=== PATIENT | male | born 1975 | race Caucasian/White ===

== ENCOUNTER 2016-10-15 14:08 | Observation (INO) | payer OTHER ==
[~2016-10-15] VITALS: Ht 177.8 cm; Wt 127.5 kg
[2016-10-15 14:52] LABS: ABSOLUTE BASOPHIL COUNT 0.1 /CUMM (0.0-0.2); ABSOLUTE EOSINOPHIL COUNT 0.3 /CUMM (0.0-0.7); ABSOLUTE GRANULOCYTE CT 7.7 /CUMM (1.4-6.5); ABSOLUTE LYMPH COUNT 2.6 /CUMM (1.2-3.4); ABSOLUTE MONOCYTE COUNT 0.6 /CUMM (0.10-0.60); BASOPHIL % 0.7 % (0.0-2.0); EOSINOPHIL % 2.3 % (0-5); GRANULOCYTE % 68.6 % (42.2-75.2); HEMATOCRIT 45.5 % (42-52); MEAN CORPUSCULAR HGB 30.3 PG (27.0-31.0); MEAN CORPUSCULAR HGB CONC 33.5 G/DL (33.0-37.0); MEAN CORPUSCULAR VOLUME 90.6 FL (80.0-94.0); MEAN PLATELET VOLUME 9.1 FL (7.4-10.4); PLATELET COUNT 183 /CUMM (130-400); RBC DISTRIBUTION WIDTH 13.6 % (11.5-14.5); RED BLOOD CELL CT 5.03 /CUMM (4.70-6.10); WHITE BLOOD CELL COUNT 11.2 /CUMM (4.8-10.8)
--- NOTE | 2016-10-15 17:05 | ED CARDIAC/CP/PALPITATIONS ---
History of Present Illness General Chief Complaint: Chest Pain Stated Complaint: CHEST PAIN,SOB Source: patient Exam Limitations: no limitations Vital Signs & Intake/Output Vital Signs & Intake/Output Vital Signs Date Time Temp Pulse Resp B/P B/P Pulse O2 O2 Flow FiO2 Mean Ox Delivery Rate 10/15 2242 97.7 79 18 138/88 97 Room Air 10/15 2133 96.4 64 18 119/60 95 Room Air 10/15 1834 97.8 64 20 111/67 97 Room Air 10/15 1713 Room Air 10/15 1705 96.1 66 18 132/73 96 Room Air 10/15 1424 98.2 84 20 94 Room Air Allergies Coded Allergies: No Known Allergies (10/15/16) Triage Note: PT TO ED C/O CHEST PAIN AND LEFT ARM PAIN. STARTED 45 MINS AGO WHILE AT WORK. C/O NUMBNESS TO LEFT ARM. NO SOB OR DIFF BREATHING NOTED. EKG DONE. Triage Nurses Notes Reviewed? yes Onset: Abrupt Duration: hour(s): (4) Timing: remote history Quality/Severity: moderate Location: LEFT CHEST Radiation: arms (LEFT) Activities at Onset: emotional stress Prior Chest Pain/Card Workup: REMOTE SYMPTOMS SIMILAR 5 YEARS AGO Nitro Today/Relief: no nitro taken today Aspirin Today: no aspirin today Associated Symptoms: SOB HPI: Patient is a 41-year-old male with history of hypertension and obesity, positive daily smoker presenting to the emergency department with chief complaint of left -sided chest pain with associated left arm numbness and tingling that thing going on for the past 3-4 hours prior to arrival. He reports it started suddenly after an argument with a coworker. At onset it was 8 out of 10. Sharp and stabbing in his left axilla with the numbness and tingling in the left arm and hand. Remote history of similar symptoms 5 years ago but it went away on its own. Patient reporting shortness of breath with this episode. Symptoms have slowly subsided since being here. On evaluation symptoms are currently 6 or 7 out of 10. Denies any recent illness or fevers. No recent antibiotic use. Denies any lower extremity swelling. No abdominal pain. No back pain. Denies any urinary frequency or urgency or dysuria. He reports his father had quadruple bypass. He does not take daily aspirin. Did not notice any change in symptoms with exertion. No cough. (KARINA LYNCH) Past History Travel History Traveled to [place] past 21 day No Medical History Any Pertinent Medical History? see below for history Cardiovascular: hypertension Surgical History Surgical History: non-contributory Psychosocial History What is your primary language Japanese Tobacco Use: Current Daily Use Daily Tobacco Use Amount/Type: => 5 Cigarettes daily ETOH Use: occasional use Illicit Drug Use: denies illicit drug use Family History Family History, If Any: FATHER Relation not specified for: FH: coronary artery disease Hx Contributory? Yes (KARINA LYNCH) Review of Systems Review of Systems Constitutional: Reports: no symptoms. Comments Review of systems: See HPI, All other systems negative. Constitutional, no chills fever or weight loss HEENT: No visual changes no sore throat no congestion Cardiovascular: No palpitation , orthopnea or ankle swelling Skin, no jaundice no rashes Respiratory: No cough sputum or hemoptysis GI: No nausea no vomiting : No dysuria No hematuria Muscle skeletal: no back pain, no neck pain, Neurologic: no confusion NO BUTTS Psych: No stress anxiety or depression,. Heme/endocrine: No bruising no bleeding no polyuria or polydipsia Immunology: No splenectomy or history of AIDS (KARINA LYNCH) Physical Exam Physical Exam General Appearance: no apparent distress, alert, awake, comfortable, obese Cardiovascular: regular rate/rhythm Comments: Obese person in no acute distress HEENT: Normal EENT exam, extraocular motion intact, no nystagmus. Pupils equally round and reactive to light and accommodation. Nose is atraumatic. External auditory canal and Tympanic membranes clear. Pharynx normal. No swelling or edema. Neck: Supple, no lymphadenopathy, normal range of motion without pain or tenderness Back: Nontender, no CVA tenderness. Cardiovascular: Regular rate and rhythms no murmurs rubs or gallops, normal JVP Respiratory: Chest nontender. No respiratory distress.breath sounds clear to auscultation bilaterally Abdomen: Soft, nontender nondistended, no appreciable organomegaly. Normal bowel sounds. No ascites Extremity: No edema, no calf tenderness to palpation, normal and equal pulses. Muscular strength is 5 out of 5 in upper and lower extremities. 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 Neuro: Alert oriented x3, motor sensory normal Skin: No appreciable rash on exposed skin, skin is warm and dry. Psych: Mood and affect is normal, memory and judgment is normal. Core Measures ACS in differential dx? Yes Severe Sepsis Present: No Septic Shock Present: No (BROOKE MCGOWAN,KARINA) Progress Differential Diagnosis: AMI, aortic dissection, CHF/pulm edema, costochondritis, hypovolemia, hyperventilation, musculoskeletal pain, pericarditis, pneumonia, pneumothorax, pulmonary embolism, unstable angina Plan of Care: Orders Procedure Date/time Status Heart Healthy Diet 10/16 B Active TROPONIN LEVEL 10/16 0030 Active EKG 10/16 29 Active Vital Signs 10/15 2148 Active Teach/Educate 10/15 2148 Active Pain Treatment and Response 10/15 2148 Active Nutritional Intake, Monitor 10/15 2148 Active Isolation 10/15 2148 Active Intake & Output 10/15 2148 Active Patient Care Conference 10/15 2148 Active Activity/Ambulation 10/15 2148 Active Pathway - chart 10/16 2135 Active Pathway - chart 10/15 2134 Active Patient Data 10/[address] in observation 10/15 2006 Active Vital Signs 10/15 2006 Active Code Status 10/15 2006 Active TROPONIN LEVEL 10/15 184 Complete EKG 10/15 184 Active Telemetry/Sports Medicine Physician 10/15 1704 Active TROPONIN LEVEL 10/15 1429 Complete COMPREHENSIVE METABOLIC PANEL 10/15 1429 Complete CBC WITHOUT DIFFERENTIAL 10/15 1429 Complete EKG 10/15 1410 Active Saline Lock 10/15 UNK Active House Staff 10/15 UNK Active VTE Mechanical Prophylaxis 10/15 UNK Active Activity/Ambulation 10/15 UNK Active Current Medications Sig/Pradeep Start time Last Medication Dose Stop Time Status Admin Enoxaparin Sodium 40 MG DAILY 10/16 1000 AC (Lovenox) Morphine Sulfate 4 MG ONCE ONE 10/15 1800 CAN (Morphine) 10/15 1801 Laboratory Tests 10/15/16 1840: Troponin I < 0.01 10/15/16 1445: Anion Gap 11, Estimated GFR > 60, BUN/Creatinine Ratio 17.1, Glucose 92, Calcium 9.5, Total Bilirubin 0.6, AST 18, ALT 28, Alkaline Phosphatase 93, Troponin I < 0.01, Total Protein 7.3, Albumin 4.3, Globulin 3.0, Albumin/Globulin Ratio 1.4, CBC w Diff NO MAN DIFF REQ, RBC 5.03, MCV 90.6, MCH 30.3, RDW 13.6, MPV 9.1, Gran % 68.6, Lymphocytes % 22.8, Monocytes % 5.6, Eosinophils % 2.3, Basophils % 0.7, Absolute Granulocytes 7.7 H, Absolute Lymphocytes 2.6, Absolute Monocytes 0.6, Absolute Eosinophils 0.3, Absolute Basophils 0.1, PUBS MCHC 33.5 Diagnostic Imaging: Viewed by Me: Radiology Read. Discussed w/RAD: Radiology Read. CXR Impression: no acute abnormality, no infiltrates, normal size heart, normal mediastinum Initial ED EKG: NSR (84 BPM) Repeat EKG: unchanged Comments: On arrival patient was given full dose aspirin and sublingual nitroglycerin. We will reassess after nitroglycerin. EKG unravels normal sinus rhythm. Blood work that was drawn at triage reveals negative troponin. Patient will have repeat troponin and EKG 4 hours from the first. Patient informed of all lab work results and imaging study results. Patient declined morphine for pain. Pain was 3 out of 10. Patient given Toradol. Mild relief with Toradol. Since patient has continued pain, positive family history and risk factors patient will be admitted for observation rule out ACS for serial troponins and EKGs. Spoke with Dr. Kaba, he will accept the patient to telemetry. Jessika Valencia MD is aware of the patient and agrees with plan. (KARINA LYNCH) Departure Departure Time of Disposition: 2028 Disposition: STILL A PATIENT Condition: Stable Clinical Impression Primary Impression: Chest pain Qualifiers: Chest pain type: unspecified Qualified Code: R07.9 - Chest pain, unspecified Referrals: UNKNOWN (PCP) Departure Forms: Customer Survey General Discharge Information Observation Note Spoke With: SAVITA KABA MD Physician Advisor Notified: ISAEL RUTHERFORD,NATALIE [facility] Place Patient In: Non-ED OBS Care Area Rationale for Observation: My rational for observation is as follows . Patient requirinG SERIAL troponins , EKGs, echocardiogram, cardiology consultation. Discharge at this time would be medically harmful. (KARINA LYNCH) PA/TELETRAY OPERATOR Co-Sign Statement Statement: ED Attending supervision documentation- [] I saw and evaluated the patient. I have also reviewed all the pertinent lab results and diagnostic results. I agree with the findings and the plan of care as documented in the PA's/TELETRAY OPERATOR's documentation. [X] I have reviewed the ED Record and agree with the PA's/TELETRAY OPERATOR's documentation. [] Additions or exceptions (if any) to the PAs/TELETRAY OPERATOR's note and plan are summarized below: [] (DENISE RUTHERFORD,JESSIKA) Critical Care Note Critical Care Note Critical Care Time: 30-74 min (BROOKE MCGOWAN,KARINA)
--- NOTE | 2016-10-15 17:42 | RADIOLOGY REPORT ---
EXAMINATION: XR CHEST, 2 VIEWS CLINICAL INFORMATION: Chest pain. Rule out cardiomegaly. COMPARISON: None. TECHNIQUE: PA and lateral views of the chest were obtained. FINDINGS: Lungs are clear. No consolidation, pneumothorax, or pleural effusion. Cardiac and mediastinal contours are normal. Pulmonary vasculature is unremarkable. Trachea is midline. Minimal degenerative spondylosis is present in the thoracic spine.. IMPRESSION: No cardiomegaly. No acute pulmonary findings.
--- NOTE | 2016-10-15 22:34 | History & Physical ---
SHRUTHI RUTHERFORD,[facility] 10/15/16 2233: General Information and HPI MD Statement: I have seen and personally examined RAEANN MAYO and documented this H&P. The patient is a 41 year old M who presented with a patient stated chief complaint of [chest pain]. Source of Information: patient Exam Limitations: no limitations History of Present Illness: is 61 year old male with past medical history significant for hypertension, [id number] disc herniation with nerve impingement (decreased sensation of left lower extremity, motor 4/5) s/p surgery almost 2 years ago and left lateral menisectomy after trauma, chronic pain (lower back and left knee) who presented to emergency department with chief complaint of chest pain. Patient reported sudden onset of left side chest pain that did not radiate to neck or arm associated with numbness of left hand, sweating, shortness of breath , headache. Patient was at work and was stressed out when he started to have this pain that last for one hour. Patient reported similar pain 10 years ago upon what he started hypertension medication. He is a current smoker 17 pack- year. He denied any alcohol, illict drug. Patient reported history of chronic pain (lower back and left knee) for which he is taking gabapentin 900 mg 3 times a day, Vicodin TID and Ibuprofen 800 mg 3 times a day for the last 2 month, complained of GERD. 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 Exam & Diagnostic Data Last 24 Hrs of Vital Signs/I&O Vital Signs Date Time Temp Pulse Resp B/P B/P Pulse O2 O2 Flow FiO2 Mean Ox Delivery Rate 10/15 2242 97.7 79 18 138/88 97 Room Air 10/15 2133 96.4 64 18 119/60 95 Room Air 10/15 1834 97.8 64 20 111/67 97 Room Air 10/15 1713 Room Air 10/15 1705 96.1 66 18 132/73 96 Room Air 10/15 1424 98.2 84 20 94 Room Air Intake & Output 10/15 1600 10/15 0800 10/15 0000 Intake Total Output Total Balance Patient 128.82 kg Weight Weight Reported by Patient Measurement Method Physical Exam General Appearance Alert, Oriented X3, Cooperative, No Acute Distress Skin No Rashes, No Breakdown, No Significant Lesion Skin Temp/Moisture Exam: Warm/Dry Sepsis Skin Exam (color): Normal for Ethnicity HEENT Atraumatic, PERRLA, EOMI, Mucous Membr. moist/pink Neck Supple, No JVD Lymphatic no cervical lymphadenopathy Cardiovascular Regular Rate, Normal S1, Normal S2, No Murmurs Lungs Clear to Auscultation, Normal Air Movement Abdomen Normal Bowel Sounds, Soft, No Tenderness Neurological Normal Gait, Normal Speech, Normal Tone, Cranial Nerves 3-12 NL, Reflexes 2+, left lower limb motor 4/5 Extremities No Clubbing, No Cyanosis, Normal Pulses, No Tenderness/Swelling, left LE +1 pedal edema Assessment/Plan Assessment: is 61 year old male with past medical history significant for hypertension, [id number] disc herniation with nerve impingement (decreased sensation of left lower extremity, motor 4/5) s/p surgery almost 2 years ago and left lateral menisectomy after trauma, chronic pain (lower back and left knee) who presented to emergency department with chief complaint of chest pain. On presentation Vitals temperature 98.2, pulse 84, blood pressure 132/73, respiratory rate 20 with saturation 94% on room air Labs WBC 11.2, H&H 15.2/45.5, basic electrolyte panel within normal, liver function test within normal, TSH 2.2, free T4 1 0.05, troponin 0.012 EKG normal sinus rhythm Chest x-ray 10/16 No cardiomegaly. No acute pulmonary findings. Problem list #Chest pain to rule out ACS #Hypertension #Smoking history #Chronic pain #Chest pain to rule out ACS -Patient presented with sudden onset of left-sided chest pain, history of similar episode 10 years ago for which she started blood pressure medication -Initial EKG normal sinus rhythm, troponin negative 2 -Risk factor obesity, hypertension, smoking history -Will observe patient for 24-hour with serial EKG and troponin to rule out ACS -Outpatient echo -Lipid profile -Hemoglobin A1c #Hypertension -Continue home medication amlodipine 10 mg daily -Vitals every shift #Smoking history -Smoking cessation counseling -Nicotine patch daily #Chronic pain -Continue gabapentin 900 mg 3 times a day -Continue Vicodin TID when necessary for moderate and severe pain -Acetaminophen 650 every 6 when necessary for mild to pain -Avoid NSAIDs given persistent heartburn -PPI for GERD DVT prophylaxis Lovenox Code full Diet heart healthy As Ranked By This Provider Problem List: 1. Chest pain Qualifiers Chest pain type: unspecified Qualified Code: R07.9 - Chest pain, unspecified 2. HTN (hypertension) Core Measures/Miscellaneous Acute Coronary Syndrome ACS Diagnosis: No Cerebrovascular Accident CVA/TIA Diagnosis: No Congestive Heart Failure CHF Diagnosis: No Venous Thromboembolism VTE Risk Factors: Acute medical illness No [facility] VTE prophylaxis d/t: No contraindications No VTE Pharm Prophylaxis d/t: No contraindications VTE Diagnosis: No VTE Type: NONE VTE Confirmed by (Test): NONE Severe Sepsis Severe Sepsis Present: No Septic Shock Septic Shock Present: No Miscellaneous Documentation Attending Case Discussed With: SAVITA KABA MD Primary Care Physician: UNKNOWN Patient sees these Specialists Orthopedic, neurosurgery Level of Patient Care: Telemetry AGNES OCHOA 10/15/16 2317: Resident Review Statement Resident Statement: examined this patient, discussed with recruitment intern, agreed with recruitment intern Other Findings: is a 41 yo man active smoker, obese, with PMHx. significant for HTN, back surgery and left lower extrimity weakness and decrease sensation 2/2 disc herniation at L2-L5-S1 s/p surgery about 2 years ago presented to ED with a c/o of chest pain. Patient started to have chest pain today afternoon at work, he was stress out and was yaling afterward he developed, left sided chest pain, pressure in nature , 8/10 in severity, on and off, last for about an hour, associated with feeling hot and sweaty, numbess of left hand and mild SOB. Patient report that he had similar pain about 10 years ago at that time he was started on BP medication. He never seen by senior linux systems engineer. Currently he smoked 1ppd for 17 years Review of other systems was negative At ED vitals was stable, examinations as above Labs: unremarkable, troponin x2 was negative EKG: SR, 61, T-wave inversion in III and flat T-wave in avf CXR: No cardiomegaly. No acute pulmonary findings. Assessment:; #Chest pain needs to r/o ACS #Hx. of HTN #Chronic back pain #Lt. LE weakness and dcrease sensation Plan: #Will admitt to telemetry floor under observation, He received aspirin and nitroglycerine at ED which helped, will continue ASA Case was discussed with , no need to keep the patient NPO for stress test, as that can be done as outpatient. -will trend troponin and EKG -Will continue home meds -Will check TSH, T4, HBA1C -Smoking cessation, nicotine patch Heart healthy diet DVT ppx: Lovenox Full code SAVITA KABA MD 10/16/16 1107: General Information and HPI Allergies/Medications Home Med list Amlodipine Besylate 10 MG TABLET 1 TAB PO DAILY htn (Reported) Aspirin (Ecotrin*) 81 MG TABLET.DR 1 TAB PO DAILY heart health Gabapentin (Neurontin) 300 MG CAPSULE 3 CAP PO TID neuropathy (Reported) Hydrocodone/Acetaminophen (Vicodin Es 7.5-300 MG Tablet) 7.5 MG-300 MG TABLET 1 TAB PO TID PRN pain (Reported) Past Family/Social History Family History Relations & Conditions if any FATHER Diabetes mellitus Attending MD Review Statement Attending Statement Attending MD Statement: examined this patient, discuss w/resident/PA/CAR PINCHER, agreed w/resident/PA/CAR PINCHER, discussed with family, reviewed EMR data (avail), discussed with nursing, discussed with case mgmt, reviewed images, amended to note Attending Assessment/Plan: The patient is a 61-year-old male with history of hypertension presenting with chest discomfort. The discomfort occurred at work after a stressful situation. He describes the discomfort as a left-sided heaviness which was a 7 out of 10 in severity and did not radiate. There was no shortness of breath or palpitations. No diaphoresis. The discomfort resolved after approximately one hour. No lightheadedness or dizziness. No nausea or vomiting. No syncope. No orthopnea. Review of systems: No fever. No chills. No hemoptysis. No hematemesis. All other systems were reviewed, and were noted to be negative. Vital Signs Date Time Temp Pulse Resp B/P B/P Pulse O2 O2 Flow FiO2 Mean Ox Delivery Rate 10/16 1050 68 120/80 10/16 0756 98.8 67 16 120/80 96 Room Air 10/15 2242 97.7 79 18 138/88 97 Room Air 10/15 2133 96.4 64 18 119/60 95 Room Air 10/15 1834 97.8 64 20 111/67 97 Room Air 10/15 1713 Room Air 10/15 1705 96.1 66 18 132/73 96 Room Air 10/15 1424 98.2 84 20 94 Room Air Physical examination: Gen: The patient is in no acute distress HEENT: Normal nose, ears, and oropharynx. Pupils equal bilaterally. Conjunctiva normal. Neck: Supple with no JVD, no masses, and no thyromegaly Lungs: Clear to auscultation with normal respiratory effort Heart: RRR, S1, S2, no murmurs. No peripheral edema, 2+ pulses in the lower extremities bilaterally Abdomen: Soft, nontender, no masses. No hepatomegaly. No splenomegaly Extremities: No clubbing or cyanosis. Normal muscle strength in the upper and lower extremities Skin: Normal skin turgor with no skin ulcers or lesions noted. Neuro: Cranial nerves intact. Sensation intact Psych: Alert and oriented 3 with appropriate affect Laboratory Tests 10/16 10/16 10/15 0649 0020 1840 Chemistry Sodium (137 - 145 mmol/L) 141 Potassium (3.5 - 5.1 mmol/L) 4.5 Chloride (98 - 107 mmol/L) 105 Carbon Dioxide (22 - 30 mmol/L) 25 Anion Gap (5 - 16) 11 BUN (9 - 20 mg/dL) 15 Creatinine (0.7 - 1.2 mg/dL) 0.7 Estimated GFR (>60 ml/min) > 60 BUN/Creatinine Ratio (7 - 25 %) 21.4 Troponin I (<0.11 ng/ml) < 0.01 < 0.01 Triglycerides (<150 mg/dL) 225 H Cholesterol (< 200 MG/DL) 229 H LDL Cholesterol, Calc (65 - 129 mg/dL) 158 H HDL Cholesterol (40 - 60 mg/dL) 26 L Cholesterol/HDL Ratio (0.00 - 4.88 %) 9 H Hematology CBC w Diff NO MAN DIFF REQ WBC (4.8 - 10.8 /CUMM) 11.7 H RBC (4.70 - 6.10 /CUMM) 4.93 Hgb (14.0 - 18.0 G/DL) 15.1 Hct (42 - 52 %) 44.5 MCV (80.0 - 94.0 FL) 90.3 MCH (27.0 - 31.0 PG) 30.6 RDW (11.5 - 14.5 %) 13.7 Plt Count (130 - 400 /CUMM) 180 MPV (7.4 - 10.4 FL) 9.7 Gran % (42.2 - 75.2 %) 71.2 Lymphocytes % (20.5 - 51.1 %) 18.9 L Monocytes % (1.7 - 9.3 %) 6.3 Eosinophils % (0 - 5 %) 3.0 Basophils % (0.0 - 2.0 %) 0.6 Absolute Granulocytes (1.4 - 6.5 /CUMM) 8.4 H Absolute Lymphocytes (1.2 - 3.4 /CUMM) 2.2 Absolute Monocytes (0.10 - 0.60 /CUMM) 0.7 H Absolute Eosinophils (0.0 - 0.7 /CUMM) 0.4 Absolute Basophils (0.0 - 0.2 /CUMM) 0.1 PUBS MCHC (33.0 - 37.0 G/DL) 33.9 10/15 1445 Chemistry Sodium (137 - 145 mmol/L) 141 Potassium (3.5 - 5.1 mmol/L) 4.0 Chloride (98 - 107 mmol/L) 103 Carbon Dioxide (22 - 30 mmol/L) 27 Anion Gap (5 - 16) 11 BUN (9 - 20 mg/dL) 12 Creatinine (0.7 - 1.2 mg/dL) 0.7 Estimated GFR (>60 ml/min) > 60 BUN/Creatinine Ratio (7 - 25 %) 17.1 Glucose (65 - 99 mg/dL) 92 Hemoglobin A1c (4.2 - 5.8 %) 6.1 H Calcium (8.4 - 10.2 mg/dL) 9.5 Total Bilirubin (0.2 - 1.3 mg/dL) 0.6 AST (17 - 59 U/L) 18 ALT (21 - 72 U/L) 28 Alkaline Phosphatase (< 127 U/L) 93 Troponin I (<0.11 ng/ml) < 0.01 Total Protein (6.3 - 8.2 g/dL) 7.3 Albumin (3.5 - 5.0 g/dL) 4.3 Globulin (1.9 - 4.2 gm/dL) 3.0 Albumin/Globulin Ratio (1.1 - 2.2 %) 1.4 TSH (0.270 - 4.200 uIU/mL) 2.230 Free T4 (0.79 - 2.35 ng/dL) 1.05 Hematology CBC w Diff NO MAN DIFF REQ WBC (4.8 - 10.8 /CUMM) 11.2 H RBC (4.70 - 6.10 /CUMM) 5.03 Hgb (14.0 - 18.0 G/DL) 15.2 Hct (42 - 52 %) 45.5 MCV (80.0 - 94.0 FL) 90.6 MCH (27.0 - 31.0 PG) 30.3 RDW (11.5 - 14.5 %) 13.6 Plt Count (130 - 400 /CUMM) 183 MPV (7.4 - 10.4 FL) 9.1 Gran % (42.2 - 75.2 %) 68.6 Lymphocytes % (20.5 - 51.1 %) 22.8 Monocytes % (1.7 - 9.3 %) 5.6 Eosinophils % (0 - 5 %) 2.3 Basophils % (0.0 - 2.0 %) 0.7 Absolute Granulocytes (1.4 - 6.5 /CUMM) 7.7 H Absolute Lymphocytes (1.2 - 3.4 /CUMM) 2.6 Absolute Monocytes (0.10 - 0.60 /CUMM) 0.6 Absolute Eosinophils (0.0 - 0.7 /CUMM) 0.3 Absolute Basophils (0.0 - 0.2 /CUMM) 0.1 PUBS MCHC (33.0 - 37.0 G/DL) 33.5 EKG: EKG tracing is reviewed, and reveals normal sinus rhythm at 61, normal EKG Chest x-ray: No cardiomegaly. No acute pulmonary findings. Assessment: * Hypertension * Hyperlipidemia * Tobacco abuse * Chest pain, ruled out for myocardial infarction Plan: * Discharge to home. * Aspirin 81 mg daily. This can be discontinued once cardiac workup is completed workup is negative. * Echocardiogram and nuclear stress test to be arranged as an outpatient. * Dietary changes for hyperlipidemia. * Follow up in the office after testing. * Call with further symptoms. * The patient is strongly advised to quit smoking. 5 minutes were spent discussing strategies for smoking cessation, including Chantix. I explained the role of tobacco use as a major cause of coronary artery disease.
[2016-10-15 22:42] VITALS: BP 138/88
[2016-10-15] MEDS ORDERED: NEURONTIN300 M1 PO (23:55)
[2016-10-15] MEDS ORDERED: AMLODIPINE BESY10 M1 PO (23:55)
[2016-10-15] MEDS ORDERED: VICODIN ES 7.51 EACH PO (23:56)
--- NOTE | 2016-10-16 07:38 | PN- Housestaff ---
Subjective Follow-up For: - Chest pain Complaints: no complaints Tele-Events Since Last Visit: Normal sinus rhythm, heart rate 60-69, no overnight events. Subjective: The patient was comfortable this morning. Did not have any complaints. Vitals were stable and he remained afebrile. Was anxious to be discharged this morning. Overnight cardiac enzymes were normal. Review of Systems Constitutional: Reports: see HPI. Objective Last 24 Hrs of Vital Signs/I&O Vital Signs Date Time Temp Pulse Resp B/P B/P Pulse O2 O2 Flow FiO2 Mean Ox Delivery Rate 10/15 2242 97.7 79 18 138/88 97 Room Air 10/15 2133 96.4 64 18 119/60 95 Room Air 10/15 1834 97.8 64 20 111/67 97 Room Air 10/15 1713 Room Air 10/15 1705 96.1 66 18 132/73 96 Room Air 10/15 1424 98.2 84 20 94 Room Air Intake & Output 10/16 0800 10/16 0000 10/15 1600 Intake Total Output Total Balance Patient 281 lb 284 lb Weight Weight Reported by Patient Measurement Method Physical Exam General Appearance: No Acute Distress Other Physical Findings: General Exam: AAOx3, No acute distress, Skin: No rashes, no breakdown HEENT: PERRLA, EOMI Neck: Supple, No JVD No cervical lymphadenopathy CVS: Reg Rate, Normal S1,S2, No MGR Resp: Normal air entry, no ronchi/rales Abdomen: Soft, No tenderness, Normal Bowel Sounds Neuro: Normal Speech, Strength 5/5 right upper and lower extremity, 5/5 right upper extremity, 3/5 left lower extremity, Sensation intact, CN III-XII NL, Reflexes 2+ Extremities: No cyanosis, pedal edema Current Medications: Current Medications Sig/Pradeep Start time Last Medication Dose Route Stop Time Status Admin Acetaminophen 500 MG Q6P PRN 10/16 0115 AC PO Acetaminophen/ 1 TAB Q6P PRN 10/16 0700 AC Hydrocodone Bitart PO Amlodipine Besylate 10 MG DAILY 10/16 1000 AC PO Aspirin 325 MG ONCE ONE 10/15 1715 DC 10/15 PO 10/16 1715 171 Aspirin 0 .STK-MED ONE 10/15 1713 DC PO Enoxaparin Sodium 40 MG DAILY 10/16 1000 AC SC Gabapentin 300 MG TID 10/16 1000 AC PO Ketorolac 30 MG ONCE ONE 10/15 1930 DC 10/15 Tromethamine IV 10/15 Ketorolac 0 .STK-MED ONE 10/15 1929 DC Tromethamine .ROUTE Morphine Sulfate 0 .STK-MED ONE 10/16 1931 DC .ROUTE Morphine Sulfate 4 MG ONCE ONE 10/15 1800 CAN IV 10/15 1801 Nicotine 14 MG DAILY 10/16 1000 AC TOP Nitroglycerin 0.4 MG ONCE ONE 10/15 1715 DC 10/15 SL 10/16 1715 171 Nitroglycerin 0 .STK-MED ONE 10/153 DC SL Omeprazole 20 MG DAILY AC 10/16 0700 AC 10/16 PO 0647 Oxycodone/ 2 TAB Q12P PRN 10/16 0115 AC Acetaminophen PO Last 24 Hrs of Lab/Leopoldo Results Last 24 Hrs of Labs/Mics: Laboratory Tests 10/16/16 0649: Sodium Pending, Potassium Pending, Chloride Pending, Carbon Dioxide Pending, Anion Gap Pending, BUN Pending, Creatinine Pending, BUN/Creatinine Ratio Pending , Triglycerides Pending, Cholesterol Pending, LDL Cholesterol, Calc Pending, HDL Cholesterol Pending, Cholesterol/HDL Ratio Pending, CBC w Diff Pending, WBC Pending, RBC Pending, Hgb Pending, Hct Pending, MCV Pending, MCH Pending, RDW Pending, Plt Count Pending, MPV Pending, PUBS MCHC Pending 10/16/16 0020: Troponin I < 0.01 10/15/16 1840: Troponin I < 0.01 10/15/16 1445: Anion Gap 11, Estimated GFR > 60, BUN/Creatinine Ratio 17.1, Glucose 92, Hemoglobin A1c Pending, Calcium 9.5, Total Bilirubin 0.6, AST 18, ALT 28, Alkaline Phosphatase 93, Troponin I < 0.01, Total Protein 7.3, Albumin 4.3, Globulin 3.0, Albumin/Globulin Ratio 1.4, TSH 2.230, Free T4 1.05, CBC w Diff NO MAN DIFF REQ, RBC 5.03, MCV 90.6, MCH 30.3, RDW 13.6, MPV 9.1, Gran % 68.6, Lymphocytes % 22.8, Monocytes % 5.6, Eosinophils % 2.3, Basophils % 0.7, Absolute Granulocytes 7.7 H, Absolute Lymphocytes 2.6, Absolute Monocytes 0.6, Absolute Eosinophils 0.3, Absolute Basophils 0.1, PUBS MCHC 33.5 Assessment/Plan Assessment: Mr. Mendez is a 41-year-old man with is a known smoker (17 pack year) a past history of hypertension, previous back surgeries secondary to L4 L5 S1 disc herniation, chronic pain is being evaluated for chest pain 1 day. At the time of admission, vitals 98.2, pulse rate 84, respiratory 20, pulse ox 94% on room air, lab findings indicated WBC 11.2, hemoglobin 15.2, platelets 183 , normal electrolytes-sodium 141, potassium 4.0, chloride 103, normal renal function BUN 12, serum creatinine 0.7, hemoglobin A1c 6.1, AST 18, ALT 28, alkaline phosphatase 93, serial cardiac enzymes negative, triglycerides 225, cholesterol 229, LDL 158, HDL 26; EKG revealed normal sinus rhythm with no ST-T wave changes. Differential diagnosis: #1 chest pain ruled out for myocardial infarction, #2 hypertension, #3 hyperlipidemia Below is the problem list and plan: #1 chest pain-patient was given aspirin and nitroglycerin. Serial cardiac enzymes and electrocardiograms did not reveal any signs suggestive of myocardial infarction. Continue aspirin 81 mg daily. To be discharged home with recommendation to follow up with the potato chip packaging machine operator for possible nuclear stress test and an echocardiogram. #2 [id number] drugs were not started at this time. Dietary changes to be done. Counseled accordingly. To be followed up by the primary care physician as an outpatient. #3 smoking-smoking cessation counseling. #4 DVT prophylaxis-pharmacological. Problem List: 1. HTN (hypertension) 2. Chest pain Pain Ratin Pain Location: None Pain Goal: Pain 4 or less Pain Plan: Tylenol when necessary Tomorrow's Labs & Rationales: No labs necessary. The patient to be discharged.
[2016-10-16 07:56] VITALS: BP 120/80
[2016-10-16 08:52] LABS: ABSOLUTE BASOPHIL COUNT 0.1 /CUMM (0.0-0.2); ABSOLUTE EOSINOPHIL COUNT 0.4 /CUMM (0.0-0.7); ABSOLUTE GRANULOCYTE CT 8.4 /CUMM (1.4-6.5); ABSOLUTE LYMPH COUNT 2.2 /CUMM (1.2-3.4); ABSOLUTE MONOCYTE COUNT 0.7 /CUMM (0.10-0.60); BASOPHIL % 0.6 % (0.0-2.0); GRANULOCYTE % 71.2 % (42.2-75.2); HEMATOCRIT 44.5 % (42-52); MEAN CORPUSCULAR HGB 30.6 PG (27.0-31.0); MEAN CORPUSCULAR HGB CONC 33.9 G/DL (33.0-37.0); MEAN CORPUSCULAR VOLUME 90.3 FL (80.0-94.0); MEAN PLATELET VOLUME 9.7 FL (7.4-10.4); PLATELET COUNT 180 /CUMM (130-400); RBC DISTRIBUTION WIDTH 13.7 % (11.5-14.5); RED BLOOD CELL CT 4.93 /CUMM (4.70-6.10); WHITE BLOOD CELL COUNT 11.7 /CUMM (4.8-10.8)
[2016-10-16 10:50] VITALS: BP 120/80
[2016-10-16] MEDS ORDERED: ASPIRIN EC81 M1 PO (12:22)
--- NOTE | 2016-10-16 12:28 | Patient Discharge Instructions ---
Discharge Instructions General Discharge Information You were seen/treated for: Chest pain Watch for these problems: #1 chest pain, shortness of breath, palpitations (racing of heart) #2 lightheadedness, dizziness Special Instructions: #1 please follow up with her primary care provider within one week of discharge. #2 please follow-up with your construction millwright within 1 week of discharge. #3 please take your medications as prescribed. Acute Coronary Syndrome Inclusion Criteria At DC or during hospital stay patient has or had the following: ACS DIAGNOSIS No Discharge Core Measures Meds if any: Prescribed or Continued at Discharge Aspirin Yes Meds if any: NOT Prescribed or Continued at Discharge Congestive Heart Failure Inclusion Criteria At DC or during hospital stay patient has or had the following: CHF DIAGNOSIS No Discharge Core Measures Meds if any: Prescribed or Continued at Discharge Meds if any: NOT Prescribed or Continued at Discharge Cerebrovascular accident Inclusion Criteria At DC or during hospital stay patient has or had the following: CVA/TIA Diagnosis No Discharge Core Measures Meds if any: Prescribed or Continued at Discharge Meds if any: NOT Prescribed or Continued at Discharge Venous thromboembolism Inclusion Criteria VTE Diagnosis No VTE Type NONE VTE Confirmed by (Test) NONE Discharge Core Measures - Per Current guidelines, there needs to be overlap - treatment for the first 5 days of Warfarin therapy. - If discharged on Warfarin prior to 5 days of - overlap therapy, the patient will need to be - assessed for post discharge needs including - *Post discharge parental anticoagulation - *Warfarin and/or parental anticoagulation education - *Follow up date to check INR post discharge At least 5 days overlap therapy as Inpatient No Meds if any: Prescribed or Continued at Discharge Note: Overlap Therapy is Warfarin and Anticoagulant Meds if any: NOT Prescribed or Continued at Discharge
== END 2016-10-16 13:40 ==
LOC: ERH 14:08 → ERHI 20:07 → 1NO 20:07 → ENRESERV 21:43 → 1NO 22:31 → ENPENDDIS 10-16 13:18 → 1NO 10-16 13:40
PROVIDERS: Emergency Medicine; Student in an Organized Health Care Education/Training Program; ADMIT Internal Medicine Cardiovascular Disease
DX: R07.9 Chest pain, unspecified (principal); I10 Essential (primary) hypertension; K21.9 Gastro-esophageal reflux disease without esophagitis; F17.200 Nicotine dependence, unspecified, uncomplicated; G89.29 Other chronic pain
CPT/HCPCS: 6020; 82436; 93005; 93010; 96372; 96374; G0378; J1650; J1885; J3490